=== PATIENT | female | born 2000 | race African-American/Black ===

== ENCOUNTER → 2023-06-20 | Emergency (ER) | payer SELFPAY ==
--- NOTE | 2023-06-20 15:22 | RAD REPORT ---
EXAM DESCRIPTION: RAD - Shoulder Left 2 View - 06/20/2023 3:00 pm CLINICAL HISTORY: PAIN COMPARISON: No comparisons TECHNIQUE: Internal and external rotation views of the left shoulder were obtained. FINDINGS: There is no fracture or dislocation. AC joint is normal in appearance. No acute or suspici ous findings. IMPRESSION: Negative two-view left shoulder examination.
--- NOTE | 2023-06-20 15:42 | ER ---
Nurse's Notes [facility] Name: Ruben Darden Age: 22 yrs Sex: Female : 2000 Arrival Date: 06/20/2023 Time: 14:05 Bed 17 Private MD: Diagnosis: Strain of muscle(s) and tendon(s) of the rotator cuff of left shoulder Presentation: 06/20 14:19 Chief complaint: Patient states: "A couple of months ago I fell off the back of a pick ph up truck and my shoulder has been hurting." Was seen and treated after accident but has continues to have pain in L shoulder. Coronavirus screen: Vaccine status: Patient reports being unvaccinated. Ebola Screen: No symptoms or risks identified at this time. Initial Sepsis Screen: Does the patient meet any 2 criteria? No. Patient's initial sepsis screen is negative. Does the patient have a suspected source of infection? No. Patient's initial sepsis screen is negative. Risk Assessment: Do you want to hurt yourself or someone else? Patient reports no desire to harm self or others. Onset of symptoms was June 20, 2023. 14:19 Method Of Arrival: Ambulatory ph 14:19 Acuity: ASHLYN 4 ph Triage Assessment: 14:22 General: Appears in no apparent distress. Behavior is calm, cooperative. Pain: ph Complains of pain in anterior aspect of left shoulder and posterior aspect of left shoulder. Historical: - Allergies: 14:23 No Known Allergies; ph - PMHx: 14:23 None; ph - PSHx: 14:23 None; ph - Immunization history:: Adult Immunizations unknown. - Social history:: Smoking status: Patient reports the use of cigarette tobacco products, denies chronic smoking, but will smoke occasionally. - Family history:: not pertinent. - Hospitalizations: : No recent hospitalization is reported. Screenin:23 Abuse screen: Denies threats or abuse. Denies injuries from another. Nutritional ph screening: No deficits noted. Tuberculosis screening: No symptoms or risk factors identified. 14:29 [facility] ED Fall Risk Assessment (Adult) History of falling in the last 3 months, ph including since admission No falls in past 3 months (0 pts) Score/Fall Risk Level 0 - 2 = Low Risk Oriented to surroundings, Maintained a safe environment, Provided non-skid footwear, Hourly rounding (assess needs \\T\\ fall precautionary measures) done. Assessment: 14:29 General: Appears in no apparent distress. Behavior is calm, cooperative. Pain: ph Complains of pain in posterior aspect of left shoulder and anterior aspect of left shoulder. Neuro: Level of Consciousness is awake, alert, obeys commands, Oriented to person, place, time, situation. Respiratory: Airway is patent Respiratory effort is even, unlabored. Musculoskeletal: Range of motion: intact in all extremities. 16:18 Neuro: Level of Consciousness is awake, alert, obeys commands, Oriented to person, aa5 place, time, situation. Respiratory: Airway is patent Respiratory effort is even, unlabored, Respiratory pattern is regular, symmetrical. Derm: Skin is dry, Skin is normal, Skin temperature is warm. ED Course: 14:08 Patient arrived in ED. mg5 14:08 Wilmer Diaz MD is Attending Physician. rn 14:21 Triage completed. ph 14:22 Arm band placed on Patient placed in waiting room, Patient notified of wait time. X-ray ph ordered. 14:29 Patient has correct armband on for positive identification. Bed in low position. Call ph light in reach. Side rails up X 1. Door closed. Noise minimized. 15:02 XRAY Shoulder LEFT 2 view In Process Unspecified. EDMS 15:37 Brandy Bello, RN is Primary Nurse. [facility] 16:20 No provider procedures requiring assistance completed. Patient did not have IV access aa5 during this emergency room visit. Administered Medications: No medications were administered Medication: 14:29 VIS not applicable for this client. ph Outcome: 15:42 Discharge ordered by . rn 16:19 Discharged to home ambulatory, with family, aa5 16:19 Condition: stable 16:19 Discharge instructions given to patient, Instructed on discharge instructions, follow up and referral plans. Demonstrated understanding of instructions, follow-up care, 16:21 Patient left the ED. aa5 Signatures: Dispatcher [employer] EDMS Wilmer Diaz MD MD rn Calderon, Audri, RN RN aa5 Arti Sebastian RN RN Brandy Bello, KAREN RN ga1 Patt Sibley mg5 Corrections: (The following items were deleted from the chart) 15:38 14:19 Chief complaint: Patient states: "A couple of months ago I fell off the back of a me1 steel pickler truck and my shoulder has been hurting." Was seen and treated after accident but has continues to have pain in L shoulder ph
--- NOTE | 2023-06-20 15:42 | EDPHYS ---
Physician Documentation [facility] Name: Ruben Darden Age: 22 yrs Sex: Female : 2000 Arrival Date: 06/20/2023 Time: 14:05 Bed 17 Private MD: ED Physician Wilmer Diaz HPI: 06/20 15:04 This 22 yrs old Black Female presents to ER via Ambulatory with complaints of Fall rn Injury, Shoulder Injury. 15:04 Details of fall: The patient fell from a height, Back of vehicle. rn 15:05 Onset: The symptoms/episode began/occurred 2 month(s) ago. Associated injuries: The rn patient sustained Left shoulder. Severity of symptoms: At their worst the symptoms were moderate, in the emergency department the symptoms have improved. The patient has not experienced similar symptoms in the past. Patient reports was in the back of the vehicle when accidentally fell off. Fall and injury happened approximately 2 months ago. Patient reports landed on her left shoulder and has had issues since. States had x-rays initially that were negative for fracture or dislocation. Patient reports pain when lifting things and rotation of left shoulder. No neck injury or pain.. Historical: - Allergies: 14:23 No Known Allergies; ph - PMHx: 14:23 None; ph - PSHx: 14:23 None; ph - Immunization history:: Adult Immunizations unknown. - Social history:: Smoking status: Patient reports the use of cigarette tobacco products, denies chronic smoking, but will smoke occasionally. - Family history:: not pertinent. - Hospitalizations: : No recent hospitalization is reported. ROS: 15:05 Constitutional: Negative for fever, chills, and weight loss, Neck: Negative for injury, rn pain, and swelling, MS/Extremity: Positive for pain and injury to left shoulder Neuro: Negative for weakness or numbness Exam: 15:05 Constitutional: This is a well developed, well nourished patient who is awake, alert, rn and in no acute distress. Ambulatory without assistance to triage MS/ Extremity: Pulses equal, no cyanosis. Neurovascular intact. Mild painful range of motion left shoulder, no bony tenderness, painful during rotator cuff active range of motion MDM: 14:09 Patient medically screened. rn 15:41 Differential diagnosis: abrasion, contusion, sprain, strain. Differential diagnosis: rn Rotator cuff injury. Data reviewed: vital signs, nurses notes. Counseling: I had a detailed discussion with the patient and/or guardian regarding the historical points, exam findings, and any diagnostic results supporting the discharge/admit diagnosis, radiology results, the need for outpatient follow up, to return to the emergency department if symptoms worsen or persist or if there are any questions or concerns that arise at home. Special discussion: I discussed with the patient/guardian in detail that at this point there is no indication for admission to the hospital. It is understood, however, that if the symptoms persist or worsen the patient needs to return immediately for re-evaluation. Further emergent ED testing is not indicated at this point in time. I discussed with the patient/guardian in detail the need to arrange with the PCP or specialist further outpatient testing, MRI, Based on the history and exam findings, there is no indication for further emergent testing or inpatient evaluation. I discussed with the patient/guardian the need to see the orthopedic surgeon for further evaluation of the symptoms. 06/20 14:23 Order name: XRAY Shoulder LEFT 2 view; Complete Time: 15:36 rn Administered Medications: No medications were administered Disposition Summary: 06/20/23 15:42 Discharge Ordered Notes: Location: Home rn Problem: new rn Symptoms: have improved rn Condition: Stable rn Diagnosis - Strain of muscle(s) and tendon(s) of the rotator cuff of left shoulder rn Followup: rn - With: Private Physician - When: As needed - Reason: Recheck today's complaints, Re-evaluation by your physician Discharge Instructions: - Discharge Summary Sheet rn - Shoulder Sprain rn Forms: - Medication Reconciliation Form rn - Thank You Letter rn - Antibiotic learning solutions specialist - Prescription Opioid Use rn - Patient Portal Instructions rn - Leadership Thank You Letter rn Signatures: Dispatcher [employer] EDWilmer Roldan MD MD rn Hall, Patricia, RN RN ph Corrections: (The following items were deleted from the chart) 15:08 15:05 Constitutional: This is a well developed, well nourished patient who is awake, rn alert, and in no acute distress. Ambulatory without assistance to triage MS/ Extremity: Pulses equal, no cyanosis. Neurovascular intact. Mild painful range of motion left shoulder, no bony tenderness, painful during rotator cuff active range of motion rn
== END ==
LOC: ER 14:05
DX: S46.012A Strain of muscle(s) and tendon(s) of the rotator cuff of left shoulder, initial encounter (principal)
CPT/HCPCS: 99283